=== PATIENT | male | born 1950 | race Caucasian/White ===

== ENCOUNTER → 2017-12-09 | Outpatient (CLI) | payer OTHER | END | disposition home or self-care (01) | LOC: PCVCIMAG 12:12 | DX: I25.10 Atherosclerotic heart disease of native coronary artery without angina pectoris (principal); E78.00 Pure hypercholesterolemia, unspecified; R93.1 Abnormal findings on diagnostic imaging of heart and coronary circulation; R94.31 Abnormal electrocardiogram [ECG] [EKG]; R09.89 Other specified symptoms and signs involving the circulatory and respiratory systems; N18.4 Chronic kidney disease, stage 4 (severe); N13.8 Other obstructive and reflux uropathy; Z79.899 Other long term (current) drug therapy; Z88.0 Allergy status to penicillin | CPT/HCPCS: 80061; 93005; 93880; G0463 ==

== ENCOUNTER → 2017-12-29 | Outpatient (CLI) | payer MEDICARE ==
[~2017-12-29] MED LIST: REGADENOSON 0.4 MG/5 ML DISP.SYRIN. IV
== END | disposition home or self-care (01) ==
LOC: PCVCIMAG 07:44
DX: I08.8 Other rheumatic multiple valve diseases (principal); I12.9 Hypertensive chronic kidney disease with stage 1 through stage 4 chronic kidney disease, or unspecified chronic kidney disease; N18.9 Chronic kidney disease, unspecified; R01.1 Cardiac murmur, unspecified; R42 Dizziness and giddiness; R00.1 Bradycardia, unspecified; R94.31 Abnormal electrocardiogram [ECG] [EKG]; R55 Syncope and collapse; E78.5 Hyperlipidemia, unspecified; E83.59 Other disorders of calcium metabolism; Z87.891 Personal history of nicotine dependence
CPT/HCPCS: 78452; 93017; 93306; A9500; J2785

== ENCOUNTER → 2018-08-05 | Outpatient (CLI) | payer MEDICARE | END | disposition home or self-care (01) | LOC: PCVCCLINIC 11:20 | PROVIDERS: ATTEND Internal Medicine Cardiovascular Disease | DX: I25.10 Atherosclerotic heart disease of native coronary artery without angina pectoris (principal); I08.0 Rheumatic disorders of both mitral and aortic valves; R94.31 Abnormal electrocardiogram [ECG] [EKG]; N18.4 Chronic kidney disease, stage 4 (severe); E78.5 Hyperlipidemia, unspecified; M10.9 Gout, unspecified; E78.00 Pure hypercholesterolemia, unspecified; M19.90 Unspecified osteoarthritis, unspecified site; Z88.5 Allergy status to narcotic agent; Z88.0 Allergy status to penicillin; Z79.82 Long term (current) use of aspirin; Z91.048 Other nonmedicinal substance allergy status; Z72.89 Other problems related to lifestyle | CPT/HCPCS: 36415; 80061; 93005; G0463 ==

== ENCOUNTER → 2019-04-21 | Outpatient (CLI) | payer MEDICARE ==
--- NOTE | 2019-04-21 15:18 | PCVCIMAG ---
APPROVED REPORT Study performed: 04/21/2019 09:31:48 EXAM: Comprehensive 2D, Doppler, and color-flow Echocardiogram Patient Location: Echo lab Room #: 2Status: routine BSA: 1.90 HR: 44 bpmBP: 136/78 mmHg Rhythm: NSR Other Information Study Quality: Good Risk Factors: Cardiac Risk Factors: Hyperlipidemia Indications Aortic Valve Disease Mitral Valve Disease Mitral Valve Prolapse Murmur CAD Syncope 2D Dimensions IVSd: 10.90 (7-11mm)LVOT Diam: 21.41 (18-24mm) LVDd: 54.50 mm PWd: 9.88 (7-11mm)Ascending Ao: 35.99 (22-36mm) LVDs: 32.12 (25-40mm) Left Atrium: 38.17 (27-40mm) Aortic Root: 29.24 mm LV Single Plane 4CH: 63.84 % LV Single Plane 2CH: 61.67 % Biplane EF: 62.8 % Volumes Left Atrial Volume (Systole) Single Plane 4CH: 102.03 mLSingle Plane 2CH: 116.36 mL Biplane LA Volume: 117.00 mLLA ESV Index: 62.00 mL/m2 Aortic Valve AoV Peak Jamshid.: 1.23 m/s AO Peak Gr.: 6.07 mmHgLVOT Max P.09 mmHg LVOT Max V: 0.88 m/s TAHIRA Vmax: 2.57 cm2 AI Vmax: 4.39 m/s AI Gratiot: 1.73 m/s2 AI PHT: 568.00 ms Mitral Valve E/A Ratio: 1.1 MV Decel. Time: 216.59 ms MV E Max Jamshid.: 0.47 m/s MV A Jamshid.: 0.44 m/s IVRT: 80.00 ms Pulmonary Valve PV Peak Jamshid.: 0.79 m/sPV Peak Gr.: 2.51 mmHg Pulmonary Vein P Vein S: 0.50 m/sP Vein A: 0.29 m/s P Vein D: 0.31 m/sP Vein A Dur.: 93.4 msec P Vein S/D Ratio: 1.61 Tricuspid Valve TR Peak Jamshid.: 2.29 m/s TR Peak Gr.: 20.94 mmHg TV Vmax: 0.41 m/sPA Pressure: 29.00 mmHg Left Ventricle The left ventricle is normal size. There is normal LV segmental wall motion. Borderline concentric left ventricular hypertrophy. Left ventricular systolic function is normal. The left ventricular ejection fraction is within the normal range. LVEF is 60-65%. Right Ventricle The right ventricle is normal size. The right ventricular systolic function is normal. Atria Left atrium is severely dilated. Right atrium is moderately dilated. Aortic Valve Aortic valve is trileaflet. Moderate aortic regurgitation. There is no aortic valvular stenosis. Mitral Valve The mitral valve is normal in structure. Moderate to severe mitral regurgitation No evidence of mitral valve stenosis. Tricuspid Valve The tricuspid valve is normal in structure. Mild tricuspid regurgitation with a PA pressure of 29 mmHg. Borderline pulmonary hypertension. Pulmonic Valve The pulmonary valve is normal in structure. There is no pulmonic valvular regurgitation. Great Vessels Sinus of Valsalva is dilated at 4.5cm, unchanged from prior study. The ascending aorta is normal in size. Aortic arch is normal in caliber. IVC is normal in size and collapses >50% with inspiration. Pericardium There is no pericardial effusion. There is no pleural effusion. <Conclusion> The left ventricle is normal size. Borderline concentric left ventricular hypertrophy. LVEF is 60-65%. The right ventricle is normal size. Left atrium is severely dilated. Right atrium is moderately dilated. Aortic valve is trileaflet. Moderate aortic regurgitation. Moderate to severe mitral regurgitation Mild tricuspid regurgitation with a PA pressure of 29 mmHg. Borderline pulmonary hypertension. Mild tricuspid regurgitation with a PA pressure of 29 mmHg. Borderline pulmonary hypertension. Sinus of Valsalva is dilated at 4.5cm, unchanged from prior study. There is no pericardial effusion.
== END ==
LOC: PCVCIMAG 09:13
PROVIDERS: ATTEND Internal Medicine Cardiovascular Disease
DX: I08.3 Combined rheumatic disorders of mitral, aortic and tricuspid valves (principal); I27.20 Pulmonary hypertension, unspecified; I25.10 Atherosclerotic heart disease of native coronary artery without angina pectoris; R01.1 Cardiac murmur, unspecified; R55 Syncope and collapse; E78.00 Pure hypercholesterolemia, unspecified; N18.4 Chronic kidney disease, stage 4 (severe); M19.90 Unspecified osteoarthritis, unspecified site
CPT/HCPCS: 36415; 80061; 93005; 93306; G0463